=== PATIENT | male | born 1985 | race American Indian/Alaskan Native ===

== ENCOUNTER 2021-11-20 04:42 | Emergency (ER) | payer OTHER ==
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
[2021-11-20 04:55] VITALS: BP 182/87
[2021-11-20] MEDS ORDERED: ACETAMINOPHEN 325 MG TAB PO ONE (05:49)
[2021-11-20] MEDS ORDERED: IBUPROFEN 400 MG TAB PO ONE (05:49)
== END 2021-11-20 05:21 | disposition home or self-care (01) ==
LOC: ED 04:42
DX: S13.4XXA Sprain of ligaments of cervical spine, initial encounter (principal); M54.2 Cervicalgia; V89.2XXA Person injured in unspecified motor-vehicle accident, traffic, initial encounter; Y93.89 Activity, other specified; Y92.89 Other specified places as the place of occurrence of the external cause; Y99.8 Other external cause status
CPT/HCPCS: 99283